=== PATIENT | female | born 1980 | race Caucasian/White ===

== ENCOUNTER → 2017-02-23 | Outpatient (REF) | payer OTHER ==
[~2017-02-23] MED LIST: ADVIL PO; BACL10TA2 OR; DOCU10CA PO; DULC5TAB PO; EFFE150C PO; EXCEDRIN PO; FLUO10TA2 OR; HYDROCODONE PO; LEVO50TA5 PO; LYRI150C OR; LYRI200C PO; LYRI225C PO; MOTR200T44 PO; OXYC1TAB23 PO; PREN1TAB11 PO; SERO1TAB2 PO; SOMA350T PO; TYLE325T5 PO; VENL75TA2 OR; XANA0.5T OR; XANA0.5T PO; ZANAX PO; prenatal PO
== END ==
LOC: M LAB REF 12:57
PROVIDERS: ATTEND Family Medicine Addiction Medicine
DX: F41.8 Other specified anxiety disorders (principal)

== ENCOUNTER 2017-04-05 13:43 | Emergency (ER) | payer OTHER ==
[~2017-04-05] VITALS: Ht 160 cm; Wt 50.0 kg
[2017-04-05 16:03] LABS: MEAN CORPUSCULAR HEMOGLOBIN 26.1 pg (27.0-33.0); MEAN CORPUSCULAR HGB CONC 32.4 g/dl (32.0-36.5); MEAN CORPUSCULAR VOLUME 80.7 fl (80.0-96.0); RED CELL DISTRIBUTION WIDTH 15.3 % (11.5-14.5)
[2017-04-05 16:09] LABS: CONTROL LINE HCG INT CTR LINE PRESENT
[2017-04-05 16:24] LABS: ALBUMIN/GLOBULIN RATIO 1.14 (1.00-1.93); ALKALINE PHOSPHATASE 78 U/L (45-117); ALT/SGPT 22 U/L (12-78); ANION GAP 7 MEQ/L (8-16); AST/SGOT 11 U/L (15-37); BILIRUBIN,DIRECT 0.2 MG/DL (0.0-0.2); BILIRUBIN,TOTAL 0.4 MG/DL (0.2-1.0); BLOOD UREA NITROGEN 6 MG/DL (7-18); CALCIUM LEVEL 9.2 MG/DL (8.5-10.1); CARBON DIOXIDE LEVEL 28 MEQ/L (21-32); CHLORIDE LEVEL 106 MEQ/L (98-107); CREATININE FOR GFR 0.79 MG/DL (0.55-1.02); GLOMERULAR FILTRATION RATE > 60.0 (>60); GLUCOSE, FASTING 101 MG/DL (70-105); SODIUM LEVEL 141 MEQ/L (136-145); TOTAL PROTEIN 7.5 GM/DL (6.4-8.2)
[2017-04-05 16:30] LABS: METHADONE URINE NEGATIVE (NEGATIVE)
[2017-04-05 18:29] VITALS: BP 116/73
== END 2017-04-05 18:30 | disposition home or self-care (01) ==
LOC: M ED 15:21
DX: F19.10 Other psychoactive substance abuse, uncomplicated (principal); F32.9 Major depressive disorder, single episode, unspecified; F17.200 Nicotine dependence, unspecified, uncomplicated; Z79.899 Other long term (current) drug therapy; Z88.5 Allergy status to narcotic agent

== ENCOUNTER 2017-04-06 15:03 | Emergency (ER) | payer OTHER ==
[~2017-04-06] VITALS: Ht 160 cm; Wt 50.0 kg
[2017-04-06 15:51] LABS: MEAN CORPUSCULAR HEMOGLOBIN 26.4 pg (27.0-33.0); MEAN CORPUSCULAR HGB CONC 32.8 g/dl (32.0-36.5); MEAN CORPUSCULAR VOLUME 80.5 fl (80.0-96.0); RED CELL DISTRIBUTION WIDTH 15.3 % (11.5-14.5); WHITE BLOOD COUNT 6.5 K/mm3 (4.0-10.0)
[2017-04-06 16:11] LABS: CONTROL LINE HCG INT CTR LINE PRESENT
[2017-04-06 16:23] LABS: ALBUMIN 4.5 GM/DL (3.2-5.2); ALKALINE PHOSPHATASE 85 U/L (45-117); ALT/SGPT 25 U/L (12-78); ANION GAP 7 MEQ/L (8-16); AST/SGOT 14 U/L (15-37); BILIRUBIN,DIRECT 0.2 MG/DL (0.0-0.2); BILIRUBIN,TOTAL 0.7 MG/DL (0.2-1.0); BLOOD UREA NITROGEN 9 MG/DL (7-18); CALCIUM LEVEL 9.6 MG/DL (8.5-10.1); CARBON DIOXIDE LEVEL 28 MEQ/L (21-32); CHLORIDE LEVEL 105 MEQ/L (98-107); CREATININE FOR GFR 0.88 MG/DL (0.55-1.02); GLOMERULAR FILTRATION RATE > 60.0 (>60); GLUCOSE, FASTING 108 MG/DL (70-105); POTASSIUM SERUM 3.6 MEQ/L (3.5-5.1); SODIUM LEVEL 140 MEQ/L (136-145); TOTAL PROTEIN 8.6 GM/DL (6.4-8.2)
[2017-04-06 17:52] LABS: METHADONE URINE NEGATIVE (NEGATIVE)
[2017-04-06 18:19] VITALS: BP 136/80
== END 2017-04-06 18:35 | disposition home or self-care (01) ==
LOC: M ED 15:52
DX: F19.10 Other psychoactive substance abuse, uncomplicated (principal); F32.9 Major depressive disorder, single episode, unspecified; F17.200 Nicotine dependence, unspecified, uncomplicated; Z79.899 Other long term (current) drug therapy; Z88.5 Allergy status to narcotic agent

== ENCOUNTER 2017-04-10 19:45 | Inpatient (IN) | payer OTHER ==
[~2017-04-10] VITALS: Ht 160 cm; Wt 57.0 kg
[2017-04-10] MEDS ORDERED: LEVO50TA5 PO (20:03)
[2017-04-10] MEDS ORDERED: VENL75CA47 PO (20:03)
[2017-04-10 21:26] LABS: MEAN CORPUSCULAR HEMOGLOBIN 26.1 pg (27.0-33.0); MEAN CORPUSCULAR HGB CONC 32.3 g/dl (32.0-36.5); MEAN CORPUSCULAR VOLUME 80.7 fl (80.0-96.0); RED CELL DISTRIBUTION WIDTH 15.7 % (11.5-14.5); WHITE BLOOD COUNT 6.8 K/mm3 (4.0-10.0)
[2017-04-10 21:42] LABS: CONTROL LINE HCG INT CTR LINE PRESENT
[2017-04-10 21:46] LABS: METHADONE URINE NEGATIVE (NEGATIVE)
[2017-04-10 21:57] LABS: ALBUMIN/GLOBULIN RATIO 1.18 (1.00-1.93); ALKALINE PHOSPHATASE 78 U/L (45-117); ALT/SGPT 21 U/L (12-78); ANION GAP 6 MEQ/L (8-16); AST/SGOT 14 U/L (15-37); BILIRUBIN,DIRECT 0.1 MG/DL (0.0-0.2); BILIRUBIN,TOTAL 0.5 MG/DL (0.2-1.0); BLOOD UREA NITROGEN 7 MG/DL (7-18); CALCIUM LEVEL 8.6 MG/DL (8.5-10.1); CARBON DIOXIDE LEVEL 30 MEQ/L (21-32); CHLORIDE LEVEL 102 MEQ/L (98-107); CREATININE FOR GFR 0.71 MG/DL (0.55-1.02); GLOMERULAR FILTRATION RATE > 60.0 (>60); GLUCOSE, FASTING 109 MG/DL (70-105); POTASSIUM SERUM 3.8 MEQ/L (3.5-5.1); SODIUM LEVEL 138 MEQ/L (136-145); TOTAL PROTEIN 7.4 GM/DL (6.4-8.2)
[2017-04-11] MEDS ORDERED: LYRI200C PO (00:26)
--- NOTE | 2017-04-11 01:48 | REP ---
Clinical: Trauma. Technique: AP, lateral, bilateral oblique views left foot . Findings: The osseous structures and joint spaces are intact and normal. There is no evidence for acute fracture or dislocation. Surrounding soft tissues are unremarkable. No subcutaneous emphysema or radiodense foreign body. Impression: No acute fracture or dislocation. Signed by Brien Celis MD 04/11/2017 01:40 A
[2017-04-11] MEDS ORDERED: MOM 30ML SUSPENSION UDC PO PRN (02:00)
[2017-04-11] MEDS ORDERED: traZODone 50 MG TAB PO PRN (02:00)
[2017-04-11] MEDS ORDERED: MAALOX 30 ML SUSP *UDC PO PRN (02:00)
[2017-04-11 03:17] VITALS: BP 115/72
[2017-04-11] MEDS: NYSTATIN 500,000 U/5 ML SUSP UDC SS SCH ×4 (09:00→21:20)
[2017-04-11] MEDS ORDERED: XANA0.25 PO (09:01)
[2017-04-11] MEDS ORDERED: OXYC1TAB23 PO (09:01)
[2017-04-11] MEDS: chlordiazePOXIDE 25 MG CAP PO SCH ×2 (09:17→21:21)
[2017-04-11] MEDS: PARoxetine 10MG TABLET PO SCH (09:18)
--- NOTE | 2017-04-11 09:28 | ECGEPIP ---
Stationary ECG Study [facility] - ED Test Date: 2017-04-11 Pat Name: JEB LUCIANO Department: Room: [place] [address] Gender: F Real Estate Administrative Assistant: GERRY : 1980 Requested By: KOBE Hickman Order Number: [id number] Reading MD: Vaishali Jessica Measurements Intervals Jarrell Rate: 63 P: 48 NH: 127 QRS: 67 QRSD: 94 T: 68 QT: 424 QTc: 437 Interpretive Statements SINUS RHYTHM SIMILAR 05/12/16 Electronically Signed On 04-11-2017 9:27:38 EDT by Vaishali Jessica
--- NOTE | 2017-04-11 10:27 | HPEPDOC ---
Medical History and Physical Date of Admission Apr 11, 2017 at 01:55 History and Physical PCP: Dr Gray ATTENDING: Dr. Fernando Gallegos HPI: 36yoF admitted to [facility] for depression, being medically examined today. Pt states she has not been eating well. Denies N/V, diarrhea. Complains of upper abdominal pain which she states started last evening. Denies cramping, states it is achy pain. States no urinary complaints. Denies any fevers, chills, weakness, fatigue, NASCIMENTO, CP, SOB, cough, palpitations, or changes in bowel or bladder habits. PMHx: Anxiety depression hypothyroid Chronic MARKET ASSET PROTECTION MANAGER/DDD CT C spine 12/08 S/p anterior cervical fusion at C4-C7. Chronic shoulder pain- NCOG. XR shoulder. 05/11/16 Negative left shoulder . Chronic pain Chronic Hepatitis C. Seen by Dr Whalen in the past. Insomnia PSHX: Cervical spinal fusion Left shoulder surgery SOCHX: Resides in: [place] Marital Status: Kids: 3 Employment: unemployed Tobacco use: 1ppd ETOH: denies Illicit Drugs: heroin, oxycodone and vicodin off the street, marijuana, crystal Meth, cocaine, crack. IV Drug Use: Heroin, meth, crack Tattoos done unprofessionally: 1 FAMHX: Mother: Alive, HTN Father: Lung Ca Siblings: none Children: Alive, well Unexpected deaths due to medical reasons: None. ROS: As noted in HPI, otherwise 11pt ROS of systems reviewed and remarkable only for LMP 03/15/17 PE: GEN: 36yoF, appears stated age. thin appearing. No acute distress. Alert and oriented x 3. HEENT: Normocephalic, atraumatic. Pupils are equal, round, and reactive to light. Extraocular movements are intact. No nystagmus appreciated. Sclera are nonicteric. Conjunctiva without injection. Nose midline. Nasal turbinates without bogginess. EACs both patent BL. TMs both visualized and simmons with good cone of light, no bulging or erythema. No facial asymmetry. Moist mucous membranes, white exudate noted on buccal mucosa and tongue. upper dentures. Pharynx pink and moist. Neck supple, trachea midline. No lymphadenopathy or thyromegaly appreciated. CHEST: Regular rate and rhythm, +S1, +S2 LUNGS: Clear to auscultation bilaterally. No wheezes, rales, or rhonchi. Breathing appears symmetric and easy. Patient is speaking in full sentences. No accessory muscle use. ABD: Round, soft, TTP RUQ and LUQ, non-distended. +Bowel sounds throughout. No rebound or guarding. No costovertebral angle tenderness. EXT: Pulses 2+ bilaterally dorsalis pedis and radial. No lower extremity edema appreciated. No calf pain/swelling. Mild TTP lateral aspect left foot. SKIN: [place], dry, warm. Capillary refill <2sec. No rashes. NEURO: Alert and oriented x 3. Cranial nerves III-XII are intact. No focal deficits appreciated. EK04/11/17 SINUS RHYTHM SIMILAR 05/12/16. XR Left foot No acute fracture or dislocation. A&P: 36yoF admitted to [facility] for depression 1. Psych. Plan per Psychiatry. EKG on file. 2. Tobacco use. Nicoderm available. 3. Thrush. Nystatin SS QID x 10 days. 4. Follow up with PCP on discharge. 5. Substance use. Per psychiatry. Continue with MVI, Thiamine, and Folic Acid supplementation. 6. Chronic neck pain/Shoulder pain/Chronic pain. Pt reports her previously prescribed pain medications were discontinued as per PCP. Per Pt, she has been getting opiates off the street. ISTOP accessed indicating Lyrica 200mg #30, 15 day supply dispensed 03/24/[address] Gray. Percocet 5/325 #56 7 day supply dispensed 03/22/[address] Cardenas. Pain Management consultation requested. 7. Chronic Hepatitis C. Arrange F/U with Dr Whalen at d/c. Pt has been seen there in the past. 8. IVDU/Tattoo done unprofessionally. Pt agrees to HIV screening. 9. Hypothyroid. Continue with supplement. TSH WNL. 10. Abdominal pain. Pt is afebrile. CBC/CMP/Amylase. UA/UC. CT abdomen and pelvis requested. 11. Left foot pain. Reported in ED that she had stepped on it wrong. XR with no acute abn/fracture. Tylenol as needed. Ice as needed. 12. Etta BAKER present throughout exam. Vital Signs Vital Signs Date Time Temp Pulse Resp B/P (MAP) Pulse Ox O2 Delivery O2 Flow Rate FiO2 04/11/17 03:17 98.3 65 16 115/72 (86) 04/11/17 02:24 98 Room Air Laboratory Data Labs 24H Laboratory Tests 2 04/10/17 21:16: Anion Gap 6L, Glomerular Filtration Rate > 60.0, Calcium Level 8.6, Aspartate Amino Transf (AST/SGOT) 14L, Alanine Aminotransferase (ALT/SGPT) 21, Alkaline Phosphatase 78, Total Bilirubin 0.5, Direct Bilirubin 0.1, Total Protein 7.4, Albumin 4.0, Albumin/Globulin Ratio 1.18, Thyroid Stimulating Hormone (TSH) 0.362, Human Chorionic Gonadotropin, Qual NEGATIVE, Salicylates Level 2.9L, Acetaminophen Level < 2.0L, Ethyl Alcohol Level < 0.003 04/10/17 21:20: Urine Amphetamines Screen POSITIVEH, Urine Benzodiazepines Screen POSITIVEH, Urine Opiates Screen POSITIVEH, Urine Methadone Screen NEGATIVE, Urine Barbiturates Screen NEGATIVE, Urine Phencyclidine Screen NEGATIVE, Urine Cocaine Metabolite Screen NEGATIVE, Urine Cannabinoids Screen POSITIVEH CBC/BMP Laboratory Tests 04/10/17 21:16 Red Blood Count 4.68, Mean Corpuscular Volume 80.7, Mean Corpuscular Hemoglobin 26.1 L, Mean Corpuscular Hemoglobin Concent 32.3, Red Cell Distribution Width 15.7 H Home Medications Scheduled Levothyroxine Sodium (Synthroid) 50 Mcg Tab, 50 MCG PO DAILY Pregabalin (Lyrica) 200 Mg Cap, 200 MG PO BID Venlafaxine HCl (Venlafaxine HCl ER) 75 Mg Capcr, 75 MG PO QHS Scheduled PRN Alprazolam (Xanax) 0.25 Mg Tab, 0.25 MG PO Q8H PRN for ANXIETY LAST FILLED 02/26/17 FOR 4 DAYS Oxycodone/Acetaminophen (Oxycodone/Acetaminophen 5-325 mg) 1 Tab Tab, 1 TAB PO Q4H PRN for PAIN LAST FILLED 03/22/17 FOR 7 DAYS Allergies Coded Allergies: Codeine (Verified Adverse Reaction, Intermediate, MIGRAINES, 04/05/17) Morphine (Unverified Adverse Reaction, Intermediate, headache, 04/05/17) Dmeetra Maxwell Apr 11, 2017 10:27
[2017-04-11] MEDS: LEVOTHYROXINE 50MCG TABLET (0.05MG) PO SCH (12:00)
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
[2017-04-11 15:26] LABS: MEAN CORPUSCULAR HEMOGLOBIN 26.4 pg (27.0-33.0); RED CELL DISTRIBUTION WIDTH 15.5 % (11.5-14.5); WHITE BLOOD COUNT 6.3 K/mm3 (4.0-10.0)
[2017-04-11] MEDS ORDERED: ONDANSETRON 4 MG TAB (S0181) PO ONE (15:45)
[2017-04-11] MEDS: NICOTINE 21MG/24HR 1 EA TRANSDERMAL TD SCH (15:52)
[2017-04-11 16:03] LABS: ALBUMIN/GLOBULIN RATIO 1.18 (1.00-1.93); ALKALINE PHOSPHATASE 72 U/L (45-117); ALT/SGPT 21 U/L (12-78); AMYLASE 27 U/L (25-115); ANION GAP 5 MEQ/L (8-16); AST/SGOT 13 U/L (15-37); BILIRUBIN,TOTAL 0.5 MG/DL (0.2-1.0); BLOOD UREA NITROGEN 3 MG/DL (7-18); CALCIUM LEVEL 8.9 MG/DL (8.5-10.1); CARBON DIOXIDE LEVEL 30 MEQ/L (21-32); CHLORIDE LEVEL 104 MEQ/L (98-107); CREATININE FOR GFR 0.66 MG/DL (0.55-1.02); GLOMERULAR FILTRATION RATE > 60.0 (>60); GLUCOSE, FASTING 105 MG/DL (70-105); SODIUM LEVEL 139 MEQ/L (136-145); TOTAL PROTEIN 7.4 GM/DL (6.4-8.2)
[2017-04-11] MEDS: hydrOXYzine 25 MG TAB PO PRN (17:18)
[2017-04-11 18:00] VITALS: BP 115/60
[2017-04-11] MEDS ORDERED: traZODone 50 MG TAB PO SCH (21:00)
[2017-04-11] MEDS ORDERED: VENLAFAXINE **XR** 75MG CAPSULE PO SCH (21:00)
[2017-04-11] MEDS: ACETAMINOPHEN TAB 650MG DOSE (2X325MG) PO PRN (21:21)
--- NOTE | 2017-04-12 04:50 | REP ---
Clinical: Abdominal pain. Findings: Lung bases clear. Liver, spleen, pancreas, gallbladder, bilateral adrenal glands and kidneys are normal for noncontrast evaluation. The enteric system is without obstruction or acute inflammatory process. Moderate fecal stasis and possible constipation cannot be excluded. Pelvis demonstrates partially collapsed normal bladder and age-appropriate uterus/adnexa. No ascites. No free air. No obvious adenopathy. Abdominal aorta without aneurysm. Musculoskeletal structures demonstrate degenerative disc osteophyte complex at the L5-S1 level. Impression: 1. No acute intra-abdominal or pelvic pathology appreciated. 2. Fecal stasis and possible constipation cannot be excluded. 3. Degenerative disc osteophyte complex at the L5-S1 level. Signed by Brien Celis MD 04/12/2017 04:42 A
[2017-04-12] MEDS: LEVOTHYROXINE 50MCG TABLET (0.05MG) PO SCH (06:15)
[2017-04-12] MEDS: NYSTATIN 500,000 U/5 ML SUSP UDC SS SCH ×4 (09:08→20:13)
[2017-04-12] MEDS: chlordiazePOXIDE 25 MG CAP PO SCH ×2 (09:09→20:13)
[2017-04-12] MEDS: PARoxetine 10MG TABLET PO SCH (09:09)
[2017-04-12] MEDS: NICOTINE 21MG/24HR 1 EA TRANSDERMAL TD SCH (09:09)
[2017-04-12] MEDS: ONDANSETRON 4 MG TAB (S0181) PO PRN (09:09)
[2017-04-12] MEDS: hydrOXYzine 25 MG TAB PO PRN ×2 (10:40→20:13)
[2017-04-12 18:46] VITALS: BP 103/62
[2017-04-12] MEDS: traZODone 100 MG TAB PO SCH (20:13)
--- NOTE | 2017-04-12 22:09 | IPN ---
DATE: 04/12/2017 36-year-old female with history of depression and polysubstance dependency admitted to our unit with significant symptoms of depression and suicidal ideation. Patient was planning to overdose. SUBJECTIVE: "I need to go home." OBJECTIVE: No major changes from yesterday. However, she is requesting to go home, says that she has been evicted and needs to get "my stuff." She also says has a court date that is pending that she cannot miss. Patient has low insight into her psychiatric problems and especially her chemical dependency problems. Patient denies side effect from the medication. Patient was able to sleep better with the help of the trazodone. MENTAL STATUS EXAMINATION: Patient is dressed in [facility]. Patient is cooperative. Poor eye contact. Speech is slow and monotone. Mood is depressed and anxious. Affect is restricted. No delusions or hallucinations. Memory, attention, and concentration are fair. Patient is fully oriented. Associations are intact. Thinking is logical. Thought content is appropriate. Patient is minimizing and denies suicidal or homicidal ideation. Insight and judgment is poor. ASSESSMENT: 1. Depression. 2. Suicidal ideation. 3. Polysubstance dependency. PLAN: 1. Increase Paxil to 20 mg by mouth every morning. 2. Increase trazodone to 100 mg by mouth nightly. 3. Continue Librium 25 mg by mouth twice a day. 4. Continue hydroxyzine as needed for anxiety. 5. Continue medication management, individual and group therapy.
[2017-04-13] MEDS: LEVOTHYROXINE 50MCG TABLET (0.05MG) PO SCH (06:07)
[2017-04-13 06:25] VITALS: BP 133/77
[2017-04-13] MEDS: chlordiazePOXIDE 25 MG CAP PO SCH (09:20)
[2017-04-13] MEDS: PARoxetine 20 MG TAB PO SCH (09:20)
[2017-04-13] MEDS: NYSTATIN 500,000 U/5 ML SUSP UDC SS SCH ×4 (09:20→21:38)
[2017-04-13] MEDS: NICOTINE 21MG/24HR 1 EA TRANSDERMAL TD SCH (09:21)
[2017-04-13] MEDS: ACETAMINOPHEN TAB 650MG DOSE (2X325MG) PO PRN ×2 (09:21→18:12)
[2017-04-13 18:00] VITALS: BP 94/56
[2017-04-13] MEDS: ONDANSETRON 4 MG TAB (S0181) PO PRN (18:12)
[2017-04-13] MEDS: hydrOXYzine 25 MG TAB PO PRN (18:12)
[2017-04-13] MEDS ORDERED: chlordiazePOXIDE 25 MG CAP PO SCH (21:00)
[2017-04-13] MEDS: traZODone 100 MG TAB PO SCH (21:38)
--- NOTE | 2017-04-13 21:39 | IPN ---
DATE: 04/13/2017 A 36-year-old female with a history of depression and polysubstance dependency, admitted to our unit with significant symptoms of depression and suicidal ideation. The patient was planning to overdose. SUBJECTIVE: "When can I go home?" OBJECTIVE: The patient continues depressed with psychomotor retardation, sad, restricted facial expression. The patient denies side effects from the medication. No evidence of withdrawal with the help of Librium. The patient does not have auditory or visual hallucinations or delusions. The patient is able to contract for safety while in the hospital. MENTAL STATUS EXAMINATION: The patient is dressed in [facility]. The patient is cooperative, has poor eye contact. Speech is slow and monotone. Mood is depressed and anxious. Affect is restricted. No evidence of psychotic symptoms. No auditory or visual hallucinations or delusions. Memory, attention and concentration are fair. The patient is able to contract for safety and denies suicidal or homicidal ideation during the interview. Insight and judgment is poor. ASSESSMENT: 1. Depression. 2. Suicidal ideation. 3. Polysubstance dependency. PLAN: 1. Continue Paxil 20 mg by mouth daily. 2. Continue trazodone 100 mg by mouth nightly. 3. Decrease Librium to 10 mg by mouth every morning and 25 mg by mouth nightly. 4. Continue medication management, individual and group therapy.
[2017-04-14] MEDS: LEVOTHYROXINE 50MCG TABLET (0.05MG) PO SCH (06:09)
[2017-04-14 06:51] VITALS: BP 98/53
[2017-04-14] MEDS: hydrOXYzine 25 MG TAB PO PRN ×2 (09:06→21:12)
[2017-04-14] MEDS: NYSTATIN 500,000 U/5 ML SUSP UDC SS SCH ×4 (09:06→21:12)
[2017-04-14] MEDS: ONDANSETRON 4 MG TAB (S0181) PO PRN (09:06)
[2017-04-14] MEDS: PARoxetine 20 MG TAB PO SCH (09:06)
[2017-04-14] MEDS: NICOTINE 21MG/24HR 1 EA TRANSDERMAL TD SCH (09:07)
--- NOTE | 2017-04-14 17:17 | IPN ---
DATE: 04/14/2017 A 36-year-old female with history of depression and polysubstance dependency admitted with significant symptoms of depression and suicidal thoughts. The patient was planning to overdose. SUBJECTIVE: "I want to go home." OBJECTIVE: The patient continues asking for discharge. She continues depressed with psychomotor retardation, very little interaction with other patients, has tendency to stay in her room. She is telling me she wants to followup treatment at [facility], but is not considering inpatient treatment. The patient has little insight into her chemical dependency. There is no evidence of auditory or visual hallucinations or delusions. Discussed treatment plan with the patient. MENTAL STATUS EXAMINATION: Patient dressed in [facility]. The patient is cooperative. Has poor eye contact. Speech is soft and monotone and is poor. Mood is depressed and anxious. Affect is restricted. No evidence of psychosis. No auditory or visual hallucinations or delusions. Memory, attention and concentration are fair. The patient is able to contract for safety during the hospitalization. Denies suicidal or homicidal ideations, but again she is minimizing all the symptoms in order to be discharged as soon as possible. Insight and judgment are limited. ASSESSMENT: 1. Depression. 2. Suicidal ideation. 3. Polysubstance dependency. PLAN: 1. Continue with Paxil 20 mg by mouth every morning. 2. Continue trazodone 100 mg by mouth at bedtime. 3. Continue Librium taper. Will decrease to 10 mg by mouth twice a day. 4. Continue medication management, individual and group therapy.
[2017-04-14 18:00] VITALS: BP 90/52
--- NOTE | 2017-04-14 18:17 | CR.PDOC ---
[facility] Pain Clinic Consultation General Date of Consultation: 04/14/17 Consultation Report For: Demetra Maxwell Chief Complaint The patient is a 36-year-old female admitted with a reason for visit of Depression. Pain management is asked to see her for further evaluation of neck and shoulder pain History of Present Illness Ele King is a 36-year-old female who was admitted to inpatient mental health for increased difficulties with depression. We are asked by Demetra Maxwell PA-C to further evaluate her current pain management status. Ele reports that she had cervical fusion completed several years ago and has had continued problems with stiffness and problems with swallowing. She notes that this increases her head pain and she has difficulty turning her neck. Also been dealing with issues with a shoulder right side and follows with Dr. German Merida for this. States that this morning her pain level is fairly well controlled at a 3-4/10. Notes that she is quite stiff that she has just recently gotten out of bed. States that prior to her admission she had been receiving pain medications through the clinic, but this was discontinued and since then was using pain medications as well as IV illicit substances on the street. Describes her pain as aching, stiff and sore. States that she has been through physical therapy. Home Medications Scheduled Levothyroxine Sodium (Synthroid) 50 Mcg Tab, 50 MCG PO DAILY, (Reported) Pregabalin (Lyrica) 200 Mg Cap, 200 MG PO BID, (Reported) Venlafaxine HCl (Venlafaxine HCl ER) 75 Mg Capcr, 75 MG PO QHS, (Reported) Scheduled PRN Alprazolam (Xanax) 0.25 Mg Tab, 0.25 MG PO Q8H PRN for ANXIETY, (Reported) LAST FILLED 02/26/17 FOR 4 DAYS Oxycodone/Acetaminophen (Oxycodone/Acetaminophen 5-325 mg) 1 Tab Tab, 1 TAB PO Q4H PRN for PAIN, (Reported) LAST FILLED 03/22/17 FOR 7 DAYS Allergies Coded Allergies: Codeine (Verified Adverse Reaction, Intermediate, MIGRAINES, 04/05/17) Morphine (Unverified Adverse Reaction, Intermediate, headache, 04/05/17) Past Medical History Medical History Cervical disc displacement, status post fusion C4-C7. 2. Right shoulder pain, being followed by Dr. German palacios 3. History of hepatitis C has been followed by Dr. Brittney Whalen 4. History of bipolar disorder. 5. History of polysubstance use Social History Social History Very poor social support. Recent history of substance abuse. Using multiple illicits. Review of Systems Subjective Constitutional: Reports: other (denies cough, fever, chills, sore throat or swollen glands. Denies loss of bowel or bladder control. Denies rashes or skin lesions. Denies chest pain or palpitations. Does note intermittent numbness in right hand. Reports that mood is improving while hospitalized.) Physical Examination Physical Examination Vital Signs/I&O Vital Signs Date Time Temp Pulse Resp B/P (MAP) Pulse Ox O2 Delivery O2 Flow Rate FiO2 04/14/17 06:51 97.8 69 98/53 (68) 04/13/17 18:00 14 04/13/17 06:25 Room Air 04/11/17 02:24 98 General Exam: Positive: alert, attentive, talkative, no acute distress, oriented times three Visual Analog Score (VAS): 3 ENT EXAM: Positive: normocephalic Neck Exam: Positive: Limited range of motion, Other (no thyromegaly. No lymphadenopathy) Chest Exam: Positive: Clear to auscultation, Negative: Wheezing, Rales Heart Exam: Positive: Regular rate and rhythm, Normal S1, S2, Negative: Murmurs, Rubs Extremity Exam: Negative: Edema Inspection of spine Mild tenderness with palpation over cervical spinous processes. Musculoskeletal Casting Operator points and tight fibrous bands identified over cervical paraspinous muscles and across the trapezius. Posture is slightly stooped. Muscle strength 5 distally and proximally in the upper and lower extremities. Gait is stepping in nature. Jboss Architect strength equal and strong. Tenderness with palpation over the right acromioclavicular joint. Decreased range of motion. Assessment 1. Postlaminectomy pain syndromecervical spine. 2. Myofascial pain. 3. Right shoulder pain Recommendation and Plan Would recommend gabriel Marlow follow-up with Dr. sachin Merida regarding her right shoulder. Recommended continuing her current medications but would be looking at not discharging her on any opioid medications. I did talk to her about the benefits of yoga. Following her discharge on she certainly could see one of the pain centers and look for some trigger point injections to the neck and shoulder region. A topical pain creams such as BenGay may also be beneficial. Thank you Demetra Maxwell, for allowing us to participate in the care of your patient, [Ele King]. Should you have any questions we will be glad to discuss this with you at any time please contact us here at the pain center at [phone]. Haley Packer Apr 14, 2017 18:17
[2017-04-14] MEDS: traZODone 100 MG TAB PO SCH (21:11)
[2017-04-14] MEDS: ACETAMINOPHEN TAB 650MG DOSE (2X325MG) PO PRN (21:12)
[2017-04-15 06:00] VITALS: BP 104/54
[2017-04-15] MEDS: LEVOTHYROXINE 50MCG TABLET (0.05MG) PO SCH (06:12)
[2017-04-15] MEDS: NICOTINE 21MG/24HR 1 EA TRANSDERMAL TD SCH (08:53)
[2017-04-15] MEDS: PARoxetine 20 MG TAB PO SCH (08:53)
[2017-04-15] MEDS: NYSTATIN 500,000 U/5 ML SUSP UDC SS SCH ×4 (08:53→22:11)
[2017-04-15] MEDS: hydrOXYzine 25 MG TAB PO PRN ×3 (08:54→22:11)
[2017-04-15] MEDS: IBUPROFEN 600 MG TAB PO PRN ×2 (15:44→22:12)
[2017-04-15 18:00] VITALS: BP 115/70
[2017-04-15] MEDS: traZODone 100 MG TAB PO SCH (22:10)
[2017-04-16 06:00] VITALS: BP 106/65
[2017-04-16] MEDS: LEVOTHYROXINE 50MCG TABLET (0.05MG) PO SCH (06:02)
[2017-04-16] MEDS: hydrOXYzine 25 MG TAB PO PRN ×2 (08:20→19:15)
[2017-04-16] MEDS: NYSTATIN 500,000 U/5 ML SUSP UDC SS SCH ×4 (08:20→21:00)
[2017-04-16] MEDS: PARoxetine 20 MG TAB PO SCH (08:20)
[2017-04-16] MEDS: NICOTINE 21MG/24HR 1 EA TRANSDERMAL TD SCH (08:20)
[2017-04-16] MEDS: IBUPROFEN 600 MG TAB PO PRN ×3 (08:21→21:59)
--- NOTE | 2017-04-16 10:03 | IPN ---
DATE: 04/15/2017 I evaluated this 36-year-old female with history of depression and polysubstance use disorder who was admitted for suicidal ideation. SUBJECTIVE: The patient reports pain, she reports that she feels better now that she is back on her medications and that she has tingling, numbness and pain in her right hand. She goes on and on at describing her pain and she reports that she was on 8 Percocet per day for shoulder pain. She minimizes her psychiatric symptoms and she emphasizes her physical problems such like the pain. She reports that she has been diagnosed previously as being bipolar and she acknowledges that she has problems with substance abuse. She says that she feels embarrassed of having used amphetamines. She reports having used marijuana almost all her life. She has used benzodiazepines, heroin and crystal meth. She is asking to be discharged and this commercial real estate underwriter explained to her that there are no discharges over the weekend. On mental status exam, she was seen alert, oriented times three, cooperative, pleasant, with monotone speech, depressed mood and affect. Her thought process is intact, her thought content is about wanting to be discharged. She denies auditory and visual hallucinations and denies thought delusions. She has not been seen responding to internal stimuli. Her attention and concentration are fair. Her memory recent and remote are fair. Her judgment and insight are poor. Currently, she is not a danger to self or others. She will continue the same treatment plan and will be reassessed tomorrow, 04/16/2017. Will monitor closely and will followup.
[2017-04-16 18:00] VITALS: BP 113/66
[2017-04-16] MEDS: traZODone 100 MG TAB PO SCH (21:59)
[2017-04-16] MEDS ORDERED: OLANZapine ORAL DISINTEGRATING TAB 5MG PO PRN (22:15)
[2017-04-17] MEDS: LEVOTHYROXINE 50MCG TABLET (0.05MG) PO SCH (06:08)
[2017-04-17 06:21] VITALS: BP 108/55
[2017-04-17] MEDS: hydrOXYzine 25 MG TAB PO PRN (08:09)
[2017-04-17] MEDS: PARoxetine 20 MG TAB PO SCH (08:09)
[2017-04-17] MEDS: NYSTATIN 500,000 U/5 ML SUSP UDC SS SCH ×2 (08:10→13:12)
[2017-04-17] MEDS: IBUPROFEN 600 MG TAB PO PRN (08:10)
[2017-04-17] MEDS: NICOTINE 21MG/24HR 1 EA TRANSDERMAL TD SCH (08:11)
[2017-04-17] MEDS ORDERED: PARO20TA3 PO (10:35)
[2017-04-17] MEDS ORDERED: TRAZ10TA PO (10:35)
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
== END 2017-04-17 13:47 | disposition home or self-care (01) | DRG 754 ==
LOC: M ED 20:50 → M ED INP 04-11 01:55 → M PSY 04-11 02:30
PROVIDERS: ADMIT Psychiatry & Neurology Psychiatry; ATTEND Psychiatry & Neurology Psychiatry
DX: F32.9 Major depressive disorder, single episode, unspecified (principal); F11.20 Opioid dependence, uncomplicated; F12.20 Cannabis dependence, uncomplicated; Z81.1 Family history of alcohol abuse and dependence; G89.29 Other chronic pain; B18.2 Chronic viral hepatitis C; E03.9 Hypothyroidism, unspecified; G47.00 Insomnia, unspecified; M50.30 Other cervical disc degeneration, unspecified cervical region; F17.210 Nicotine dependence, cigarettes, uncomplicated; F19.24 Other psychoactive substance dependence with psychoactive substance-induced mood disorder; M25.511 Pain in right shoulder; M96.1 Postlaminectomy syndrome, not elsewhere classified; M79.1 Myalgia; B37.0 Candidal stomatitis; M79.672 Pain in left foot; R10.10 Upper abdominal pain, unspecified; Z62.811 Personal history of psychological abuse in childhood; Z79.899 Other long term (current) drug therapy; Z98.1 Arthrodesis status; Z88.5 Allergy status to narcotic agent; Z63.32 Other absence of family member

== ENCOUNTER 2018-08-19 21:36 | Inpatient (IN) | payer MEDICAID, OTHER, SELFPAY ==
[2018-08-19] MEDS ORDERED: METAL LOCK LOOP XX (22:05)
[2018-08-20 01:08] LABS: HEMATOCRIT 37.8 % (36.0-47.0); HEMOGLOBIN 11.7 g/dl (12.0-15.5); MEAN CORPUSCULAR HEMOGLOBIN 24.4 pg (27.0-33.0); MEAN CORPUSCULAR VOLUME 78.9 fl (80.0-96.0); PLATELET COUNT, AUTOMATED 292 10^3/uL (150-450); RED BLOOD COUNT 4.79 10^6/uL (4.00-5.40); RED CELL DISTRIBUTION WIDTH 17.6 % (11.5-14.5); WHITE BLOOD COUNT 5.8 10^3/uL (4.0-10.0)
[2018-08-20 01:39] LABS: CONTROL LINE HCG INT CTR LINE PRESENT; HCG, SERUM QUALITATIVE NEGATIVE (NEGATIVE)
[2018-08-20 02:02] LABS: ALKALINE PHOSPHATASE 80 U/L (45-117); ALT/SGPT 32 U/L (12-78); ANION GAP 9 MEQ/L (8-16); AST/SGOT 22 U/L (7-37); BLOOD UREA NITROGEN 4 MG/DL (7-18); CALCIUM LEVEL 8.8 MG/DL (8.5-10.1); CARBON DIOXIDE LEVEL 30 MEQ/L (21-32); CHLORIDE LEVEL 104 MEQ/L (98-107); CREATININE FOR GFR 0.75 MG/DL (0.55-1.30); GLOMERULAR FILTRATION RATE > 60.0 (>60); GLUCOSE, FASTING 87 MG/DL (70-100); POTASSIUM SERUM 3.4 MEQ/L (3.5-5.1); SODIUM LEVEL 143 MEQ/L (136-145)
[2018-08-20 02:03] LABS: ACETAMINOPHEN LEVEL < 2.0 UG/ML (10.0-30.0); ALBUMIN 3.8 GM/DL (3.2-5.2); ALBUMIN/GLOBULIN RATIO 1.03 (1.00-1.93); BILIRUBIN,DIRECT 0.1 MG/DL (0.0-0.2); BILIRUBIN,TOTAL 0.3 MG/DL (0.2-1.0); ETHYL ALCOHOL (ETHANOL) < 0.003 % (0.000-0.010); SALICYLATE LEVEL 2.6 MG/DL (5.0-30.0); TOTAL PROTEIN 7.5 GM/DL (6.4-8.2)
[2018-08-20 03:07] LABS: AMPHETAMINES LEVEL URINE POSITIVE (NEGATIVE); BARBITURATES URINE NEGATIVE (NEGATIVE); BENZODIAZEPINES URINE POSITIVE (NEGATIVE); CANNABINOIDS URINE POSITIVE (NEGATIVE); COCAINE METABOLITE URINE NEGATIVE (NEGATIVE); METHADONE URINE NEGATIVE (NEGATIVE); OPIATES URINE NEGATIVE (NEGATIVE); PHENCYCLIDINE URINE NEGATIVE (NEGATIVE)
[2018-08-20] MEDS ORDERED: MAALOX 30 ML SUSP *UDC PO (11:30)
[2018-08-20] MEDS ORDERED: MOM 30ML SUSPENSION UDC PO (11:30)
[2018-08-20] MEDS: NICOTINE 21MG/24HR 1 EA TRANSDERMAL TD (16:44)
[2018-08-20] MEDS: hydrOXYzine 50 MG TAB PO (17:05)
[2018-08-20] MEDS: traZODone 50 MG TAB PO ×2 (21:29→23:08)
[2018-08-20] MEDS: ACETAMINOPHEN TAB 650MG DOSE (2X325MG) PO (23:09)
[2018-08-21 07:29] LABS: ANION GAP 6 MEQ/L (8-16); BLOOD UREA NITROGEN 6 MG/DL (7-18); CALCIUM LEVEL 8.8 MG/DL (8.5-10.1); CARBON DIOXIDE LEVEL 30 MEQ/L (21-32); CHLORIDE LEVEL 104 MEQ/L (98-107); CREATININE FOR GFR 0.74 MG/DL (0.55-1.30); GLOMERULAR FILTRATION RATE > 60.0 (>60); GLUCOSE, FASTING 99 MG/DL (70-100); POTASSIUM SERUM 3.9 MEQ/L (3.5-5.1); SODIUM LEVEL 140 MEQ/L (136-145)
[2018-08-21] MEDS: NICOTINE 21MG/24HR 1 EA TRANSDERMAL TD (09:38)
[2018-08-21] MEDS: hydrOXYzine 50 MG TAB PO ×2 (09:38→15:52)
[2018-08-21] MEDS: LITHIUM CARBONATE 300 MG **CR** TAB PO ×2 (12:11→21:30)
[2018-08-21] MEDS: traZODone 50 MG TAB PO (21:30)
[2018-08-22] MEDS: hydrOXYzine 50 MG TAB PO ×3 (10:06→21:29)
[2018-08-22] MEDS: CEPHALEXIN 500 MG CAP PO ×3 (10:06→21:28)
[2018-08-22] MEDS: NICOTINE 21MG/24HR 1 EA TRANSDERMAL TD (10:06)
[2018-08-22] MEDS: LITHIUM CARBONATE 300 MG **CR** TAB PO ×2 (10:06→21:28)
[2018-08-22 11:28] LABS: HIV 1&2 SCREEN CENTAUR NEGATIVE (NEGATIVE)
[2018-08-22] MEDS: traZODone 50 MG TAB PO (21:28)
[2018-08-23] MEDS: CEPHALEXIN 500 MG CAP PO ×3 (06:19→22:09)
[2018-08-23] MEDS: NICOTINE 21MG/24HR 1 EA TRANSDERMAL TD (09:27)
[2018-08-23] MEDS: ACETAMINOPHEN TAB 650MG DOSE (2X325MG) PO (09:27)
[2018-08-23] MEDS: LITHIUM CARBONATE 300 MG **CR** TAB PO ×2 (09:28→22:09)
[2018-08-23] MEDS: traZODone 50 MG TAB PO (22:09)
[2018-08-24] MEDS: CEPHALEXIN 500 MG CAP PO ×3 (05:21→21:38)
[2018-08-24] MEDS: LITHIUM CARBONATE 300 MG **CR** TAB PO ×2 (09:28→21:38)
[2018-08-24] MEDS: NICOTINE 21MG/24HR 1 EA TRANSDERMAL TD (09:28)
[2018-08-24] MEDS: MIRTAZAPINE 15 MG TAB PO (21:38)
[2018-08-25] MEDS: CEPHALEXIN 500 MG CAP PO ×3 (06:03→22:01)
[2018-08-25] MEDS: NICOTINE 21MG/24HR 1 EA TRANSDERMAL TD (09:44)
[2018-08-25] MEDS: LITHIUM CARBONATE 300 MG **CR** TAB PO ×2 (09:44→22:01)
[2018-08-25] MEDS: ACETAMINOPHEN TAB 650MG DOSE (2X325MG) PO (09:44)
[2018-08-25] MEDS: MIRTAZAPINE 15 MG TAB PO (22:01)
[2018-08-26] MEDS: CEPHALEXIN 500 MG CAP PO ×3 (05:53→21:10)
[2018-08-26] MEDS: LITHIUM CARBONATE 300 MG **CR** TAB PO ×2 (09:09→21:10)
[2018-08-26] MEDS: NICOTINE 21MG/24HR 1 EA TRANSDERMAL TD (09:09)
[2018-08-26] MEDS: MIRTAZAPINE 15 MG TAB PO (21:00)
[2018-08-27] MEDS: hydrOXYzine 50 MG TAB PO (00:25)
[2018-08-27] MEDS: CEPHALEXIN 500 MG CAP PO ×2 (06:19→13:12)
[2018-08-27] MEDS: LITHIUM CARBONATE 300 MG **CR** TAB PO (09:16)
[2018-08-27] MEDS: NICOTINE 21MG/24HR 1 EA TRANSDERMAL TD (09:16)
[2018-08-27 10:46] LABS: LITHIUM LEVEL 0.36 MEQ/L (0.60-1.20)
[2018-08-27] MEDS: ACETAMINOPHEN TAB 650MG DOSE (2X325MG) PO (12:27)
== END 2018-08-27 13:20 | disposition home or self-care (01) | DRG 753 ==
LOC: M ED INP 08-20 11:19 → M ED 21:36 → M PSY 08-20 12:55
DX: F31.9 Bipolar disorder, unspecified (principal); F11.10 Opioid abuse, uncomplicated; F12.10 Cannabis abuse, uncomplicated; F15.10 Other stimulant abuse, uncomplicated; F17.210 Nicotine dependence, cigarettes, uncomplicated; M79.632 Pain in left forearm; G47.00 Insomnia, unspecified; M25.512 Pain in left shoulder; E87.6 Hypokalemia; B18.2 Chronic viral hepatitis C; Z59.0 Homelessness; Z62.810 Personal history of physical and sexual abuse in childhood; Z81.1 Family history of alcohol abuse and dependence; Z81.8 Family history of other mental and behavioral disorders; Z88.5 Allergy status to narcotic agent; Z98.1 Arthrodesis status

== ENCOUNTER → 2018-08-28 | Outpatient (CLI) | payer MEDICAID | LOC: M OUTALCOH 09:07 | DX: Z13.9 Encounter for screening, unspecified (principal); F15.20 Other stimulant dependence, uncomplicated ==

== ENCOUNTER → 2019-04-23 | Outpatient (REF) | payer OTHER ==
[~2019-04-23] MED LIST changes: +CEPH500C PO; -EFFE150C PO; +EFFE150C2 PO; +LITH1TAB PO; +MIRT15TA3 PO; +PARO20TA3 PO; +TRAZ10TA PO; +VENL75CA47 PO; +XANA0.25 PO
[2019-04-27 17:14] LABS: HPV HYBRID CAPTURE II Negative (Negative)
== END ==
LOC: M LAB REF 17:32
PROVIDERS: ATTEND Advanced Practice Midwife
DX: Z12.4 Encounter for screening for malignant neoplasm of cervix (principal)

== ENCOUNTER → 2019-04-24 | Outpatient (CLI) | payer OTHER ==
[2019-04-24 14:56] LABS: BASO % 0.5 % (0.0-1.0); EOS # 0.2 10^3/uL (0.0-0.50); EOS % 2.3 % (0.0-3.0); HEMATOCRIT 36.8 % (36.0-47.0); HEMOGLOBIN 12.1 g/dl (12.0-15.5); LYMPH # 1.5 10^3/uL (1.5-4.5); LYMPH % 22.5 % (24.0-44.0); MEAN CORPUSCULAR HEMOGLOBIN 27.2 pg (27.0-33.0); MEAN CORPUSCULAR HGB CONC 32.9 g/dl (32.0-36.5); MEAN CORPUSCULAR VOLUME 82.7 fl (80.0-96.0); MONO # 0.7 10^3/uL (0.0-0.8); NEUTROPHILS # 4.1 10^3/uL (1.8-7.7); NEUTROPHILS % 63.2 % (36.0-66.0); PLATELET COUNT, AUTOMATED 243 10^3/uL (150-450); RED BLOOD COUNT 4.45 10^6/uL (4.00-5.40); WHITE BLOOD COUNT 6.5 10^3/uL (4.0-10.0)
[2019-04-24 15:29] LABS: ALBUMIN 3.7 GM/DL (3.2-5.2); ALT/SGPT 26 U/L (12-78); BILIRUBIN,TOTAL 0.2 MG/DL (0.2-1.0); BLOOD UREA NITROGEN 8 MG/DL (7-18); CALCIUM LEVEL 8.2 MG/DL (8.5-10.1); CARBON DIOXIDE LEVEL 23 MEQ/L (21-32); CHLORIDE LEVEL 105 MEQ/L (98-107); CREATININE FOR GFR 0.66 MG/DL (0.55-1.30); FREE T4 0.78 NG/DL (0.76-1.46); GLOMERULAR FILTRATION RATE > 60.0 (>60); GLUCOSE, FASTING 90 MG/DL (70-100); HEPATITIS B SURFACE ANTIBODY NEGATIVE (POSITIVE); SODIUM LEVEL 137 MEQ/L (136-145); TOTAL PROTEIN 7.1 GM/DL (6.4-8.2)
[2019-04-24 15:40] LABS: RUBELLA IgG QUALITATIVE IMMUNE (IMMUNE)
[2019-04-24 16:08] LABS: HIV 1&2 SCREEN CENTAUR NEGATIVE (NEGATIVE)
[2019-04-24 21:08] LABS: HEPATITIS C VIRUS ABY INDEX > 11.0 INDEX (<0.8)
[2019-05-03 14:09] LABS: HEPATITIS A IgG TOTAL Positive (Negative); HEPATITIS B CORE ANTIBODY IGG Negative (Negative); HEPATITIS C QUANTITATION 53070 IU/mL (.); HEPATITIS C VIRUS GENOTYPE 3 (.)
== END ==
LOC: M LAB 13:34
PROVIDERS: ATTEND Advanced Practice Midwife
DX: Z34.80 Encounter for supervision of other normal pregnancy, unspecified trimester (principal)

== ENCOUNTER → 2019-04-26 | Outpatient (REF) | payer OTHER ==
[2019-04-26 14:28] LABS: CHLAMYDIA DNA AMPLIFICATION NEGATIVE (NEGATIVE); GC DNA AMPLIFICATION NEGATIVE (NEGATIVE)
== END ==
LOC: M LAB REF 12:05
PROVIDERS: ATTEND Advanced Practice Midwife
DX: Z34.80 Encounter for supervision of other normal pregnancy, unspecified trimester (principal); Z3A.00 Weeks of gestation of pregnancy not specified

== ENCOUNTER → 2019-07-08 | Outpatient (CLI) | payer OTHER ==
[~2019-07-08] MED LIST changes: +LEXA1TAB PO; +LYRI150C PO; +PRENTAB9 PO; -TRAZ10TA PO; +TRAZ1TAB12 PO
--- NOTE | 2019-07-09 04:35 | REP ---
Clinical: Anatomical evaluation. Comparison: none. Findings: Examination demonstrates a single live intrauterine in cephalic presentation. motion is identified by technologist. Placenta is noted the posterior and grade the zero without evidence for placenta previa or abruption. Amniotic fluid volume is normal. Cervix measures 5.7 cm in length and appears closed. No evidence for nuchal cord. Gestational age by current measurements 21 weeks 1 day with REBECCA 11/17/2019 . FHR equals 129 beats per minute. BPD 4.9 cm 20 weeks 6 days HC 18.6 cm 21 weeks 0 days AC 15.8 cm 21 weeks 0 days FL 3.7 cm 21 weeks 5 days HL 3.3 cm 20 weeks 6 days HC/AC ratio 1.17 Estimated weight 411 grams ( 45th percentile). Anatomical assessment demonstrates normal structures including cranium, choroid plexus, cavum, cerebellum/posterior fossa, lungs, four-chamber heart/ventricular outflow tracts, diaphragm, stomach, cord insertion/three-vessel cord, kidneys/bladder, spine. Limited evaluation of the facial features and extremities due to positioning. Impression: 1. Single live intrauterine in cephalic presentation demonstrating appropriate estimated weight. 2. Anatomical limitations as noted above may warrant reevaluation and follow-up. Electronically Signed by Brien Celis MD 07/09/2019 04:27 A
== END ==
LOC: M RAD 13:53
PROVIDERS: ATTEND Specialist
DX: O09.522 Supervision of elderly multigravida, second trimester (principal); Z3A.21 21 weeks gestation of pregnancy

== ENCOUNTER → 2019-07-25 | Outpatient (CLI) | payer OTHER ==
[~2019-07-25] MED LIST changes: -LEXA1TAB PO; -LYRI150C PO; -PRENTAB9 PO; +TRAZ10TA PO; -TRAZ1TAB12 PO
--- NOTE | 2019-07-25 15:51 | REP ---
OB ULTRASOUND: Real-time sonographic evaluation of the gravid uterus is performed and demonstrates a single living intrauterine gestation. Estimated gestational age is 23 weeks 4 days, EDC 11/17/2019. Today's measurements indicate appropriate growth. BPD 56 mm = 23 weeks 1 day, 41st percentile HC 218 mm = 23 weeks 6 days, 59th percentile AC 198 mm = 24 weeks 3 days, 69th percentile Femur length 42 mm = 23 weeks 6 cays, 57th percentile HC/AC ratio 1.10 within normal range. Estimated weight 661 grams, 62nd percentile. Cervix is closed and measures 3.2 cm in length. heart rate 155 beats per minute. SEEN/GROSSLY UNREMARKABLE Lateral ventricles Yes Posterior fossa Yes Upper lip Yes Four-chamber heart Yes LVOT Yes RVOT Yes Stomach Yes Cord insertion Yes Three vessel cord Yes Kidneys Yes Bladder Yes Spine Yes position: Vertex. Placenta: Fundal and grade 1 with no previa or abruption. Amniotic fluid: Within normal limits. Electronically Signed by Liu Patel MD 07/25/2019 06:02 P
== END ==
LOC: M RAD 10:15
PROVIDERS: ATTEND Specialist
DX: O09.522 Supervision of elderly multigravida, second trimester (principal); Z3A.23 23 weeks gestation of pregnancy

== ENCOUNTER → 2019-09-09 | Outpatient (CLI) | payer OTHER ==
[2019-09-09 13:41] LABS: BASO % 0.3 % (0.0-1.0); EOS # 0.2 10^3/uL (0.0-0.5); EOS % 1.4 % (0.0-3.0); HEMOGLOBIN 9.9 g/dl (12.0-15.5); LYMPH # 1.4 10^3/uL (1.5-5.0); LYMPH % 13.4 % (24.0-44.0); MEAN CORPUSCULAR HEMOGLOBIN 27.7 pg (27.0-33.0); MEAN CORPUSCULAR HGB CONC 31.9 g/dl (32.0-36.5); MEAN CORPUSCULAR VOLUME 86.6 fl (80.0-96.0); NEUTROPHILS # 7.9 10^3/uL (1.5-8.5); PLATELET COUNT, AUTOMATED 182 10^3/uL (150-450); RED BLOOD COUNT 3.58 10^6/uL (4.00-5.40); WHITE BLOOD COUNT 10.5 10^3/uL (4.0-10.0)
== END ==
LOC: M LAB 11:26
PROVIDERS: ATTEND Specialist
DX: O09.522 Supervision of elderly multigravida, second trimester (principal)

== ENCOUNTER 2019-10-08 11:39 | Outpatient (CLI) | payer OTHER ==
[~2019-10-08] VITALS: Ht 160 cm; Wt 71.5 kg
[2019-10-08] VITALS (8 sets, daily range): BP systolic 133–148; BP diastolic 75–88
[2019-10-08] MEDS ORDERED: LYRI150C PO (12:13)
[2019-10-08] MEDS ORDERED: PRENTAB9 PO (12:13)
[2019-10-08] MEDS ORDERED: LEXA1TAB PO (12:13)
[2019-10-08] MEDS ORDERED: BETAMETHASONE SOLUSPAN 6MG/ML INJ 5ML (J0702) IM SCH (13:00)
--- NOTE | 2019-10-08 14:19 | REP ---
OB ULTRASOUND: Real-time sonographic evaluation of the gravid uterus is performed. There is a single living intrauterine gestation. Estimated gestational age 34 weeks 2 days, EDC 11/17/2019. Today's measurements indicate somewhat less than expected growth. BPD 80 mm = 32 weeks 2 days, 21st percentile HC 291 mm = 32 weeks 0 days, 17th percentile AC 304 mm = 34 weeks 2 days, 52nd percentile Femur length 61 mm = 31 weeks 5 days, 12th percentile HC/AC ratio 0.96 within normal range. Estimated weight 2131 grams, 27th percentile. Cervix is closed and measures 3.0 cm in length. heart rate 137 beats per minute. Amniotic fluid appears lower limits of normal. RYAN is 7.5. Normal range is 8.1-24.8. S/D ratio 2.93 within normal range of 2.0-3.0. RI 0.66 within normal range of 0.59-0.75. Visualized anatomy today includes lateral ventricles, four chamber heart, stomach, kidneys, bladder, and spine which are all grossly unremarkable. position vertex. Placenta posterior and fundal, grade 0 with no previa or abruption. Electronically Signed by Liu Patel MD 10/09/2019 07:05 P
[2019-10-08 14:55] LABS: BARBITURATES URINE REFLEX NEGATIVE (NEGATIVE); BENZODIAZEPINES URINE REFLEX NEGATIVE (NEGATIVE); COCAINE METABOLITE URINE REFLE NEGATIVE (NEGATIVE); METHADONE URINE REFLEX NEGATIVE (NEGATIVE); OPIATES URINE REFLEX NEGATIVE (NEGATIVE); PHENCYCLIDINE URINE REFLEX NEGATIVE (NEGATIVE)
[2019-10-08 14:57] LABS: AMPHETAMINES URINE REFLEX PENDING CONFIRMATION (NEGATIVE); CANNABINOIDS URINE REFLEX PENDING CONFIRMATION (NEGATIVE)
--- NOTE | 2019-10-08 19:07 | IPN ---
DATE: 10/08/2019 39-year-old G-4, P-3 female, 34 2/7 weeks gestation, presents from the office for elevated blood pressure of 160/90. Denies headaches or blurry vision. OBJECTIVE: Blood pressure 137/84, pulse 84, she is in no apparent distress. Head and neck exam: Normal. Lungs: Clear. Heart: Regular rate and rhythm. Abdomen: Nontender. heart tones: Category I, contractions rare. Extremities: Nontender, trace edema. ULTRASOUND: Growth 27 percentile, vertex, amniotic fluid index (RYAN) 7.5. ASSESSMENT AND PLAN: 39-year-old Gasper-4, P-3, at 34 2/7 with gestational hypertension. PLAN: Blood pressure has re-stabled. In the triage, no treatment needed currently. The patient received first dose of betamethasone. She will return for 2nd dose tomorrow. Followup in the office 10/17.
== END 2019-10-08 15:23 | disposition home or self-care (01) ==
LOC: M LDO 11:39
PROVIDERS: ATTEND Specialist
DX: O09.513 Supervision of elderly primigravida, third trimester (principal); O13.3 Gestational [pregnancy-induced] hypertension without significant proteinuria, third trimester; Z88.5 Allergy status to narcotic agent; Z88.8 Allergy status to other drugs, medicaments and biological substances; Z3A.34 34 weeks gestation of pregnancy
CPT/HCPCS: 59025; 76816; 76820; 80307; 96372; G0480; J0702

== ENCOUNTER 2019-10-09 12:57 | Outpatient (CLI) | payer OTHER ==
[~2019-10-09] VITALS: Ht 160 cm; Wt 72.4 kg
[~2019-10-09 12:57] MED LIST changes: +LEXA1TAB PO; +LYRI150C PO; +PRENTAB9 PO
[2019-10-09 13:18] VITALS: BP_DIAS 132
[2019-10-09 13:56] VITALS: BP 133/77
[2019-10-09] MEDS ORDERED: BETAMETHASONE SOLUSPAN 6MG/ML INJ 5ML (J0702) IM ONE (14:00)
--- NOTE | 2019-10-09 18:48 | IPN ---
DATE: 10/09/2019 Ele is a 39-year-old 4, para 3-0-0-3 at 34-5/7 weeks, estimated date of confinement (EDC) of 11/15/2019. She presents to labor and delivery today for betamethasone injection number two. She has been recently diagnosed with preeclampsia with a spot urine of 0.34. Group B Streptococcus (GBS) was obtained and negative. She does report some mild cramping. She denies headache, visual disturbances, epigastric pain, and right upper quadrant discomfort. Fetus has been active. care initiated at [facility]. course complicated by multiple social issues, chronic hepatitis C, chronic pain, Lyrica use during , history of opiate addiction, recent diagnosis of preeclampsia. OBJECTIVE: Temperature 98.6, pulse 107, respiratory rate 18, blood pressure is 132/88. heart rate is 125 with moderate variability, positive accelerations. No decelerations. There is no pattern of regular contractions. Betamethasone 12 mg intramuscular (IM) was injected, number two. ASSESSMENT: Intrauterine at 34-5/7 weeks, heart rate is category 1, preeclampsia. PLAN: Discharge the patient to home. She is to followup in the office on Monday for a routine appointment, blood pressure check, non-stress test (NST). She did undergo a growth ultrasound yesterday that demonstrated fetus 2131 grams, 27th percentile, cephalic presentation, amniotic fluid index (RYAN) 7.5 cm. I did review discharge instructions. The patient is to followup at [facility] on Monday for a routine visit, NST, and blood pressure check. Delivery plan is pending her blood pressures.
== END 2019-10-09 14:25 | disposition home or self-care (01) ==
LOC: M LDO 12:57
PROVIDERS: ATTEND Advanced Practice Midwife
DX: O09.513 Supervision of elderly primigravida, third trimester (principal); O14.03 Mild to moderate pre-eclampsia, third trimester; O98.413 Viral hepatitis complicating pregnancy, third trimester; O99.350 Diseases of the nervous system complicating pregnancy, unspecified trimester; G89.29 Other chronic pain; Z3A.34 34 weeks gestation of pregnancy; Z86.59 Personal history of other mental and behavioral disorders

== ENCOUNTER 2019-10-17 11:38 | Outpatient (CLI) | payer OTHER ==
[~2019-10-17] VITALS: Ht 152.4 cm; Wt 74.8 kg
[2019-10-17 11:55] VITALS: BP 142/80
[2019-10-17 12:28] VITALS: BP 136/82
[2019-10-17 13:45] VITALS: BP 128/68
--- NOTE | 2019-10-17 14:49 | REP ---
OB ULTRASOUND, BIOPHYSICAL PROFILE: Real-time sonographic evaluation of gravid uterus performed. There is a single living intrauterine gestation. The estimated gestational age is 35 weeks 4 days, EDC 11/17/2019. heart rate is 144 beats per minute. The amniotic fluid is within normal limits, RYAN 9.6 within normal range of 7.8 to 24.9. Biophysical profile score 8/8. S/D ratio 2.19, within normal range of 2.0 to 3.0. RI 0.54, below normal range of 0.59 to 0.75. position is vertex. Placenta is posterior and fundal and grade 3 with no previa or abruption. Electronically Signed by Liu Patel MD 10/17/2019 04:34 P
--- NOTE | 2019-10-17 15:05 | IPNPDOC ---
Text Note Date of Service The patient was seen on 10/17/19. NOTE Outpatient 39yo REBECCA 11/15/2019. Presents @ 35w6d. Multiple and varied complaints. Known CHTN, scheduled for IOL 37 wks. Reported decreased FM, headache, generalized abdominal pain. NAD VSS, normotensive Cat I tracing BPP 8/8. Requested urine from pt to f/u UTI. Pt stated "I don't have burning, not UTI" Informed her it could present diferently in . Pt reports inability to void and demanded discharge to see her son. Reviewed need for urine at next office visit. Discharged home with instructions to call if pain worsens, regular UC, LOF, bleeding, decreased FM. Pt reports appt 10/25/[address] Lino. Justyna Bolivar CNM Oct 17, 2019 15:05
== END 2019-10-17 14:44 | disposition home or self-care (01) ==
LOC: M LDO 11:38
PROVIDERS: ATTEND Advanced Practice Midwife
DX: O36.8131 Decreased fetal movements, third trimester, fetus 1 (principal); Z3A.35 35 weeks gestation of pregnancy; O26.893 Other specified pregnancy related conditions, third trimester; R10.84 Generalized abdominal pain; R51 Headache; O10.013 Pre-existing essential hypertension complicating pregnancy, third trimester

== ENCOUNTER 2019-10-25 15:27 | Inpatient (IN) | payer OTHER ==
[~2019-10-25] VITALS: Ht 160 cm; Wt 72.8 kg
[2019-10-25 15:47] VITALS: BP 136/82
[2019-10-25] MEDS ORDERED: LACTATED RINGER'S 1000 ML IV STA (16:13)
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
[2019-10-25 16:35] VITALS: BP 132/84
[2019-10-25] MEDS: miSOPROStol 50 MCG 1/2 TAB (S0191) PO SCH ×2 (16:57→21:56)
[2019-10-25 17:02] LABS: HEMATOCRIT 35.6 % (36.0-47.0); HEMOGLOBIN 10.7 g/dl (12.0-15.5); MEAN CORPUSCULAR HEMOGLOBIN 23.1 pg (27.0-33.0); MEAN CORPUSCULAR HGB CONC 30.1 g/dl (32.0-36.5); MEAN CORPUSCULAR VOLUME 76.9 fl (80.0-96.0); PLATELET COUNT, AUTOMATED 228 10^3/uL (150-450); RED BLOOD COUNT 4.63 10^6/uL (4.00-5.40); WHITE BLOOD COUNT 10.9 10^3/uL (4.0-10.0)
[2019-10-25 17:18] LABS: ALT/SGPT 12 U/L (12-78); BILIRUBIN,TOTAL 0.4 MG/DL (0.2-1.0); GLOMERULAR FILTRATION RATE > 60.0 (>60); LDH LACTATE DEHYDROGENASE 166 U/L (84-246); URIC ACID 4.4 MG/DL (2.6-6.0)
[2019-10-25 17:56] LABS: AMPHETAMINES URINE REFLEX NEGATIVE (NEGATIVE); BARBITURATES URINE REFLEX NEGATIVE (NEGATIVE); BENZODIAZEPINES URINE REFLEX NEGATIVE (NEGATIVE); CANNABINOIDS URINE REFLEX NEGATIVE (NEGATIVE); COCAINE METABOLITE URINE REFLE NEGATIVE (NEGATIVE); METHADONE URINE REFLEX NEGATIVE (NEGATIVE); PHENCYCLIDINE URINE REFLEX NEGATIVE (NEGATIVE)
[2019-10-25 18:02] LABS: OPIATES URINE REFLEX PENDING CONFIRMATION (NEGATIVE)
[2019-10-25 18:07] LABS: TOTAL PROTEIN,RANDOM URINE 28.1 MG/DL (0.0-12.0)
[2019-10-25 19:53] VITALS: BP 139/75
[2019-10-25] MEDS ORDERED: hydrOXYzine 50 MG TAB PO SCH (21:00)
[2019-10-25 21:05] VITALS: BP 134/60
[2019-10-25 21:55] VITALS: BP 147/70
[2019-10-25] MEDS: PREGABALIN 75 MG CAP(LYRICA) PO SCH (22:27)
[2019-10-26] VITALS (38 sets, daily range): BP systolic 102–181; BP diastolic 50–96
[2019-10-26] MEDS: miSOPROStol 50 MCG 1/2 TAB (S0191) PO SCH (02:44)
[2019-10-26] MEDS ORDERED: OXYTOCIN DRIP 30 UNITS in IV 1 EA IV SCH ×2 (09:00→21:52)
[2019-10-26] MEDS: LR 1,000 ML IV SCH ×3 (09:14→17:27)
[2019-10-26] MEDS: PREGABALIN 75 MG CAP(LYRICA) PO SCH ×2 (09:33→23:21)
--- NOTE | 2019-10-26 15:33 | IPNPDOC ---
Obstetrical Progress Note Date of Service Oct 26, 2019 Subjective Miss each feeling a little bit more uncomfortable. She is tolerating labor well Objective Vital Signs Date Time Temp Pulse Resp B/P (MAP) Pulse Ox O2 Delivery O2 Flow Rate FiO2 10/26/19 13:52 100 20 117/73 (88) 10/26/19 11:23 99 Room Air 10/26/19 10:49 98.9 Assessment Heart Rate (FHR): 140 Variability: Moderate Accelerations: Positive Heart Rate Tracing: Category I Tocometer Contractions: Yes Frequency: regular Sterile Vaginal Examination Dilation: 2cm Effacement (%): 50% Station: -2 Cervical Consistency: Medium Cervical Position: Middle Postion/Presentation: Cephalic presentation Assessment and Plan Age: 39 : 4 Term: 2 Livin Anticipate: Vaginal Delivery Additional Comments Cook's catheter place with 60 mL/40ml SEAN LEE MD. Oct 26, 2019 15:33
[2019-10-26] MEDS ORDERED: fentaNYL 100 MCG/2 ML INJECTION (J3010) As Ordered ONE (17:23)
[2019-10-26] MEDS ORDERED: FENTANYL 2MCG/ML ROPIVACAINE 0.2% IN 0.9% NACL 100ML IVBAG As Ordered ONE (17:25)
[2019-10-26] MEDS ORDERED: EPIDURAL/PCA KEYS XX PRN (19:00)
[2019-10-26] MEDS ORDERED: NALOXONE INJ 0.4 MG/1 ML VIAL (J2310) IV PRN (19:00)
[2019-10-26] MEDS ORDERED: FENTANYL/ROPIVACAINE/NACL BAG 100 ML EPIDURAL SCH (19:00)
[2019-10-26] MEDS ORDERED: ONDANSETRON 4MG/2ML VIAL (J2405) IV PRN (19:00)
[2019-10-26] MEDS ORDERED: diphenhydrAMINE INJ 50MG/ML VIAL (J1200) IV PRN (19:00)
[2019-10-26] MEDS ORDERED: ePHEDrine SULFATE 25 MG/5 ML(5MG/ML) SYRINGE IV PRN (19:00)
[2019-10-26] MEDS ORDERED: REFRIGERATOR IV KEYS XX PRN (19:00)
[2019-10-26] MEDS ORDERED: EPIDURAL COMMENT XX SCH (19:00)
--- NOTE | 2019-10-26 21:58 | DNPDOC ---
[facility] Delivery Note Delivery Note DATE OF DELIVERY: 10/26/2019 PREDELIVERY DIAGNOSIS: 1. Intrauterine at 37 weeks 2. Gestational hypertension POST DELIVERY DIAGNOSIS: Delivered. PROCEDURE: Spontaneous vaginal delivery. 6 AVIATION PROJECT MANAGER: Dr. Wilcox ANESTHESIA:. Epidural. ESTIMATED BLOOD LOSS:. 300 mL. FINDINGS: 6 pound 12 ounce female , Score 9/and 9. DELIVERY SUMMARY: On 10/26/2019 at 2118 speech 39-year-old 4, now para 4, had a spontaneous vaginal delivery of a liveborn female infant, Apgars 9 and 9. Weight was 6 lbs. 12 oz. or 3070 g. Head was delivered OA, followed by delivery right anterior shoulder, left posterior shoulder and corpus. Infant was handed to mom with a good cry. Cord was then clamped 2 and was cut by the support person under my direction. Placenta was then drained and delivered grossly intact. A premixed bag of 500 amounts of normal saline with 30 units Pitocin was bolused along with uterine massage until the uterus was firm. On inspection, there was a first-degree midline laceration which was repaired with 3-0 Vicryl. On reinspection, cervix, vagina, perineum was grossly intact. Mom and baby recovered in stable condition. There is 5 laparotomy sponges accounted for prior to and after delivery and there was one sharps removed delivery field. Mom's decided to remain in daughter, Vero. SEAN WILCOX MD. Oct 26, 2019 21:58
[2019-10-26] MEDS ORDERED: ANUSOL HC CREAM 30GM TOP PRN (22:00)
[2019-10-26] MEDS ORDERED: MEASLES,MUMPS,RUBELLA VACCINE INJ (MMR-II) (90707) SC SCH (22:00)
[2019-10-26] MEDS ORDERED: RHOGAM 300 MCG (1500 IU) INJ (J2790) IM SCH (22:00)
[2019-10-26] MEDS ORDERED: ACETAMINOPHEN 500 MG TAB PO PRN (22:00)
[2019-10-26] MEDS ORDERED: MOM 30ML SUSPENSION UDC PO PRN (22:00)
[2019-10-26] MEDS ORDERED: METHYLERGONOVINE MALEATE 0.2 MG TAB PO PRN (22:00)
[2019-10-26] MEDS ORDERED: DOCUSATE SODIUM 100 MG CAP PO PRN (22:00)
[2019-10-26] MEDS ORDERED: IBUPROFEN 600 MG TAB PO PRN (22:00)
[2019-10-26] MEDS ORDERED: ACETAMINOPHEN TAB 650MG DOSE (2X325MG) PO PRN (22:00)
[2019-10-26] MEDS ORDERED: DIBUCAINE 1% OINTMENT 30GM TOP PRN (22:00)
[2019-10-27] MEDS: IBUPROFEN 800 MG TAB PO PRN (05:31)
[2019-10-27 06:00] VITALS: BP 136/74
--- NOTE | 2019-10-27 08:46 | IPNPDOC ---
Progress Note Date of Service: Oct 27, 2019 Day#: 1 Progress Note SUBJECT: Doing well without complaints. Ambulating, voiding and pain is well-co ntrolled. Reports minimal lochia. OBJECTIVE: VITAL SIGNS: Within normal limits, afebrile. Alert and oriented times three. Abdomen: Fundus firm at U-2. Soft, NTTP. Ext: neg calf tenderness. ASSESSMENT: day #1 status post normal spontaneous vaginal delivery. Recovering in stable condition. PLAN: 1. Continue routine care 2. Discharge plans for tomorrow VS, I&O, 24H, Fishbone Vital Signs/I&O Vital Signs Date Time Temp Pulse Resp B/P (MAP) Pulse Ox O2 Delivery O2 Flow Rate FiO2 10/27/19 06:00 98.4 80 16 136/74 (94) 10/26/19 23:50 97 Room Air I&O- Last 24 Hours up to 6 AM 10/27/19 06:00 Intake Total 4295 ml Output Total 3225 ml Balance 1070 ml SEAN LEE MD. Oct 27, 2019 08:46
[2019-10-27] MEDS: PRENATAL VITAMINS CHEWABLE TABLET PO SCH (09:46)
[2019-10-27] MEDS: PREGABALIN 75 MG CAP(LYRICA) PO SCH ×2 (10:32→21:23)
[2019-10-27] MEDS: ESCITALOPRAM OXALATE 10 MG TAB (LEXAPRO) PO SCH (11:14)
[2019-10-27 17:24] VITALS: BP 154/81
[2019-10-27 22:30] VITALS: BP 162/86
[2019-10-27 22:35] VITALS: BP 155/60
[2019-10-28] MEDS: IBUPROFEN 800 MG TAB PO PRN (01:07)
[2019-10-28 02:23] VITALS: BP 122/62
[2019-10-28 06:48] VITALS: BP 129/77
[2019-10-28] MEDS: PRENATAL VITAMINS CHEWABLE TABLET PO SCH (09:02)
[2019-10-28] MEDS: PREGABALIN 75 MG CAP(LYRICA) PO SCH (09:03)
[2019-10-28] MEDS: ESCITALOPRAM OXALATE 10 MG TAB (LEXAPRO) PO SCH (09:03)
[2019-10-28 10:00] VITALS: BP 140/80
[2019-10-31 08:07] LABS: Opiates Negative (Cutoff=200)
== END 2019-10-28 13:00 | disposition home or self-care (01) | DRG 560 ==
LOC: M LDI 15:27 → M OBS 10-26 23:27
PROVIDERS: ADMIT Advanced Practice Midwife; ATTEND Obstetrics & Gynecology
PROC: 3E0P7GC Introduction of Other Therapeutic Substance into Female Reproductive, Via Natural or Artificial Opening (ICD-10-PCS; 2019-10-25)
PROC: 10E0XZZ Delivery of Products of Conception, External Approach (ICD-10-PCS; principal; 2019-10-26)
PROC: 0HQ9XZZ Repair Perineum Skin, External Approach (ICD-10-PCS; 2019-10-26)
DX: O14.94 Unspecified pre-eclampsia, complicating childbirth (principal); Z3A.37 37 weeks gestation of pregnancy; O99.334 Smoking (tobacco) complicating childbirth; F17.200 Nicotine dependence, unspecified, uncomplicated; O70.0 First degree perineal laceration during delivery; Z37.0 Single live birth

== ENCOUNTER → 2020-01-27 | Outpatient (REF) | payer OTHER ==
[~2020-01-27] MED LIST changes: -TRAZ10TA PO; +TRAZ1TAB12 PO
[2020-01-27 18:53] LABS: CHLAMYDIA DNA AMPLIFICATION NEGATIVE (NEGATIVE); GC DNA AMPLIFICATION NEGATIVE (NEGATIVE)
== END ==
LOC: M SFHCWAGY 16:57
PROVIDERS: ATTEND Nurse Practitioner Women's Health
DX: N76.0 Acute vaginitis (principal)

== ENCOUNTER → 2020-04-10 | Outpatient (REF) | payer OTHER, MEDICAID ==
[2020-04-10 13:16] LABS: BASO # 0.1 10^3/uL (0.0-0.2); BASO % 0.9 % (0.0-1.0); EOS # 0.3 10^3/uL (0.0-0.5); EOS % 4.9 % (0.0-3.0); HEMATOCRIT 37.2 % (36.0-47.0); HEMOGLOBIN 11.9 g/dl (12.0-15.5); LYMPH # 2.1 10^3/uL (1.5-5.0); LYMPH % 37.5 % (24.0-44.0); MEAN CORPUSCULAR HEMOGLOBIN 25.4 pg (27.0-33.0); MEAN CORPUSCULAR VOLUME 79.5 fl (80.0-96.0); MONO # 0.7 10^3/uL (0.0-0.8); MONO % 12.3 % (0.0-5.0); NEUTROPHILS # 2.5 10^3/uL (1.5-8.5); NEUTROPHILS % 44.2 % (36.0-66.0); PLATELET COUNT, AUTOMATED 225 10^3/uL (150-450); RED BLOOD COUNT 4.68 10^6/uL (4.00-5.40); WHITE BLOOD COUNT 5.6 10^3/uL (4.0-10.0)
[2020-04-10 13:50] LABS: ALT/SGPT 39 U/L (12-78); BILIRUBIN,TOTAL 0.2 MG/DL (0.2-1.0); BLOOD UREA NITROGEN 9 MG/DL (7-18); CALCIUM LEVEL 8.7 MG/DL (8.5-10.1); CARBON DIOXIDE LEVEL 29 MEQ/L (21-32); CHLORIDE LEVEL 108 MEQ/L (98-107); CHOLESTEROL LEVEL 131 MG/DL (<200); CHOLESTEROL RISK RATIO 3.358 (<5); CREATININE FOR GFR 0.75 MG/DL (0.55-1.30); FREE T4 0.72 NG/DL (0.76-1.46); GLOMERULAR FILTRATION RATE > 60.0 (>60); GLUCOSE, FASTING 86 MG/DL (70-100); HDL CHOLESTEROL 39 MG/DL (>40); LDL CHOLESTEROL 75 MG/DL (<100); NON-HDL-C 92 MG/DL; POTASSIUM SERUM 3.9 MEQ/L (3.5-5.1); SODIUM LEVEL 142 MEQ/L (136-145); TOTAL PROTEIN 7.3 GM/DL (6.4-8.2); TRIGLYCERIDES LEVEL 86 MG/DL (<150)
== END ==
LOC: M LAB REF 12:04
PROVIDERS: ATTEND Family Medicine Addiction Medicine
DX: M54.12 Radiculopathy, cervical region (principal)

== ENCOUNTER → 2020-04-23 | Outpatient (CLI) | payer OTHER, MEDICAID ==
--- NOTE | 2020-04-23 11:36 | REP ---
Clinical: Radiculopathy. Technique: AP, lateral, flexion/extension, bilateral oblique and open mouth views of the cervical spine. Comparison: 03/15/2016 Findings: Anterior fixation at C4 - C7 is again noted. Very minimal chronic anterolisthesis at the C2-3 and C3-4 of less than 1.5 mm is again suggested and unchanged. Open mouth view demonstrates normal C1-C2 articulation and odontoid process. Oblique views demonstrate patent neural foramen. Prevertebral soft tissues are normal. Impression: No significant change from prior examination. Electronically Signed by Brien Celis MD 04/23/2020 11:27 A
== END ==
LOC: M RAD 10:51
PROVIDERS: ATTEND Family Medicine Addiction Medicine
DX: M54.2 Cervicalgia (principal)

== ENCOUNTER → 2021-01-21 | Outpatient (REF) | payer OTHER ==
[2021-01-21 14:23] LABS: ALBUMIN 4.1 GM/DL (3.2-5.2); ALT/SGPT 31 U/L (12-78); BILIRUBIN,TOTAL 0.4 MG/DL (0.2-1.0); BLOOD UREA NITROGEN 5 MG/DL (7-18); CALCIUM LEVEL 9.2 MG/DL (8.5-10.1); CARBON DIOXIDE LEVEL 27 MEQ/L (21-32); CHLORIDE LEVEL 104 MEQ/L (98-107); CHOLESTEROL LEVEL 154 MG/DL (<200); CHOLESTEROL RISK RATIO 3.422 (<5); CREATININE FOR GFR 0.76 MG/DL (0.55-1.30); GLOMERULAR FILTRATION RATE > 60.0 (>60); GLUCOSE, FASTING 80 MG/DL (70-100); HDL CHOLESTEROL 45 MG/DL (>40); LDL CHOLESTEROL 97 MG/DL (<100); NON-HDL-C 109 MG/DL; POTASSIUM SERUM 3.9 MEQ/L (3.5-5.1); SODIUM LEVEL 139 MEQ/L (136-145); TOTAL PROTEIN 7.2 GM/DL (6.4-8.2); TRIGLYCERIDES LEVEL 62 MG/DL (<150)
== END ==
LOC: M LAB REF 10:55
PROVIDERS: ATTEND Family Medicine Addiction Medicine
DX: E03.9 Hypothyroidism, unspecified (principal)

== ENCOUNTER 2022-10-01 13:26 | Emergency (ER) | payer OTHER ==
[~2022-10-01] VITALS: Ht 160 cm; Wt 67.3 kg
[2022-10-01 13:27] VITALS: BP 135/70
[2022-10-01] MEDS ORDERED: AMPH1CAP5 (13:34)
[2022-10-01] MEDS ORDERED: LEVO125T4 (13:34)
[2022-10-01] MEDS ORDERED: BUPR1FIL (13:34)
[2022-10-01] MEDS ORDERED: VENL150C43 (13:34)
[2022-10-01] MEDS ORDERED: PREG150C (13:34)
[2022-10-01] MEDS ORDERED: CEPHALEXIN 500 MG CAP PO ONE (14:45)
[2022-10-01] MEDS ORDERED: CEPH500C PO (14:56)
== END 2022-10-01 15:05 | disposition home or self-care (01) ==
LOC: M ED 13:26
DX: L03.116 Cellulitis of left lower limb (principal); M19.90 Unspecified osteoarthritis, unspecified site; B19.20 Unspecified viral hepatitis C without hepatic coma; F17.200 Nicotine dependence, unspecified, uncomplicated; Z88.5 Allergy status to narcotic agent; Z79.890 Hormone replacement therapy; Z79.899 Other long term (current) drug therapy

== ENCOUNTER 2022-11-17 17:23 | Emergency (ER) | payer OTHER ==
[~2022-11-17 17:23] MED LIST changes: +AMPH1CAP5; +BUPR1FIL; +LEVO125T4; +PREG150C; +VENL150C43
[2022-11-17 17:24] VITALS: BP 118/75
[2022-11-17] MEDS ORDERED: DOXY-443 PO (18:25)
[2022-11-17] MEDS ORDERED: DOXYCYCLINE HYCLATE 100MG TABLET PO ONE (18:25)
== END 2022-11-17 18:43 | disposition home or self-care (01) ==
LOC: M ED 17:23
DX: L03.115 Cellulitis of right lower limb (principal); I10 Essential (primary) hypertension; B19.20 Unspecified viral hepatitis C without hepatic coma; F17.200 Nicotine dependence, unspecified, uncomplicated; Z88.5 Allergy status to narcotic agent; Z79.890 Hormone replacement therapy; Z79.899 Other long term (current) drug therapy

== ENCOUNTER → 2022-12-05 | Outpatient (REF) | payer OTHER ==
[~2022-12-05] MED LIST changes: +DOXY-443 PO
== END ==
LOC: M LAB REF 16:26
PROVIDERS: ATTEND Family Medicine Addiction Medicine
DX: E03.9 Hypothyroidism, unspecified (principal)

== ENCOUNTER → 2023-06-23 | Outpatient (REF) | payer OTHER ==
[2023-06-23 13:18] LABS: BASO # 0.1 10^3/uL (0.0-0.2); BASO % 0.6 % (0.0-1.0); EOS # 0.2 10^3/uL (0.0-0.5); EOS % 2.8 % (0.0-3.0); HEMATOCRIT 39.8 % (36.0-47.0); HEMOGLOBIN 13.2 g/dl (12.0-15.5); LYMPH # 2.1 10^3/uL (1.5-5.0); LYMPH % 26.8 % (24.0-44.0); MEAN CORPUSCULAR HEMOGLOBIN 27.4 pg (27.0-33.0); MEAN CORPUSCULAR HGB CONC 33.2 g/dl (32.0-36.5); MEAN CORPUSCULAR VOLUME 82.6 fl (80.0-96.0); MONO # 0.8 10^3/uL (0.0-0.8); MONO % 10.6 % (2.0-8.0); NEUTROPHILS # 4.6 10^3/uL (1.5-8.5); NEUTROPHILS % 58.4 % (36.0-66.0); PLATELET COUNT, AUTOMATED 264 10^3/uL (150-450); RED BLOOD COUNT 4.82 10^6/uL (4.00-5.40); WHITE BLOOD COUNT 7.9 10^3/uL (4.0-10.0)
[2023-06-23 13:28] LABS: ALBUMIN 4.3 G/DL (3.2-5.2); ALKALINE PHOSPHATASE 75 U/L (46-116); ALT/SGPT 50 U/L (7.0-40); AST/SGOT 19 U/L (<34); BILIRUBIN,TOTAL 0.8 MG/DL (0.3-1.2); BLOOD UREA NITROGEN 12 MG/DL (9-23); CALCIUM LEVEL 8.8 MG/DL (8.5-10.1); CARBON DIOXIDE LEVEL 26 MMOL/L (20-31); CHLORIDE LEVEL 106 MMOL/L (98-107); CREATININE FOR GFR 0.69 MG/DL (0.55-1.30); GLOMERULAR FILTRATION RATE > 60.0 (>58); GLUCOSE, FASTING 88 MG/DL (60-100); POTASSIUM SERUM 3.2 MMOL/L (3.5-5.1); SODIUM LEVEL 141 MMOL/L (136-145); TOTAL PROTEIN 7.8 G/DL (5.7-8.2)
[2023-06-23 13:30] LABS: THYROID STIMULATING HORMONE 6.539 uIU/ML (0.55-4.78)
[2023-06-23 13:32] LABS: INR 1.14; PROTHROMBIN TIME 14.3 SECONDS (12.5-14.5)
[2023-06-23 14:02] LABS: HIV 1&2 SCREEN NEGATIVE (NEGATIVE)
[2023-06-23 14:09] LABS: HEPATITIS B CORE ANTIBODY IGM NEGATIVE (NEGATIVE)
[2023-06-23 15:13] LABS: HEPATITIS C VIRUS ABY INDEX > 11.00 INDEX (<0.8)
[2023-06-26 19:07] LABS: HEPATITIS A IgG TOTAL Positive (Negative); HEPATITIS B CORE ANTIBODY IGG Negative (Negative); HEPATITIS C QUANTITATION 85300 IU/mL (.); HEPATITIS C VIRUS GENOTYPE 3 (.)
== END ==
LOC: M LAB REF 12:04
PROVIDERS: ATTEND Family Medicine Addiction Medicine
DX: E03.9 Hypothyroidism, unspecified (principal); B18.2 Chronic viral hepatitis C

== ENCOUNTER → 2024-03-20 | Outpatient (CLI) | payer OTHER ==
[~2024-03-20] MED LIST changes: +DOXY-323 PO; -DOXY-443 PO; -EFFE150C2 PO; +EFFE150C3 PO; -PREG150C; +PREG150C2
[2024-03-20 13:21] LABS: ALBUMIN 3.7 G/DL (3.2-5.2); BILIRUBIN,DIRECT 0.1 MG/DL (<0.4); BILIRUBIN,TOTAL 0.3 MG/DL (0.3-1.2); TOTAL PROTEIN 6.8 G/DL (5.7-8.2)
[2024-03-21 20:07] LABS: HEPATITIS C QUANTITATION HCV Not Detected IU/mL (.)
== END ==
LOC: M LAB 12:02
PROVIDERS: ATTEND Internal Medicine Infectious Disease
DX: B18.2 Chronic viral hepatitis C (principal)

== ENCOUNTER → 2025-02-11 | Outpatient (REF) | payer OTHER ==
[~2025-02-11] MED LIST changes: -DOXY-323 PO; +DOXY-441 PO
[2025-02-11 13:43] LABS: BASO # 0.1 10^3/uL (0.0-0.2); EOS # 0.2 10^3/uL (0.0-0.5); EOS % 4.5 % (0.0-3.0); HEMATOCRIT 40.8 % (36.0-47.0); HEMOGLOBIN 13.4 g/dl (12.0-15.5); LYMPH # 1.4 10^3/uL (1.5-5.0); LYMPH % 28.5 % (24.0-44.0); MEAN CORPUSCULAR HEMOGLOBIN 27.9 pg (27.0-33.0); MEAN CORPUSCULAR HGB CONC 32.8 g/dl (32.0-36.5); MONO # 0.6 10^3/uL (0.0-0.8); MONO % 12.4 % (2.0-8.0); NEUTROPHILS # 2.6 10^3/uL (1.5-8.5); NEUTROPHILS % 53.4 % (36.0-66.0); PLATELET COUNT, AUTOMATED 259 10^3/uL (150-450); WHITE BLOOD COUNT 4.9 10^3/uL (4.0-10.0)
[2025-02-11 13:47] LABS: ALKALINE PHOSPHATASE 71 U/L (35-104); ALT/SGPT 20 U/L (7.0-40); AST/SGOT 14 U/L (<34); BILIRUBIN,TOTAL 0.3 MG/DL (0.3-1.2); BLOOD UREA NITROGEN 9 MG/DL (9-23); CARBON DIOXIDE LEVEL 30 MMOL/L (20-31); CHLORIDE LEVEL 106 MMOL/L (98-107); CHOLESTEROL LEVEL 177 MG/DL (<200); CHOLESTEROL RISK RATIO 3.68 (<5); CREATININE FOR GFR 0.68 MG/DL (0.55-1.30); GLOMERULAR FILTRATION RATE > 90.0 (>58); GLUCOSE, FASTING 105 MG/DL (60-100); SODIUM LEVEL 140 MMOL/L (136-145); TRIGLYCERIDES LEVEL 95 MG/DL (<150)
[2025-02-11 13:50] LABS: THYROID STIMULATING HORMONE 6.732 uIU/ML (0.55-4.78)
== END ==
LOC: M LAB REF 13:05
PROVIDERS: ATTEND Family Medicine Addiction Medicine
DX: E03.9 Hypothyroidism, unspecified (principal)